=== PATIENT | female | born 1995 | race Caucasian/White ===

== ENCOUNTER 2017-12-11 10:24 | Emergency (ER) | payer MEDICAID ==
[2017-12-11 10:48] VITALS: BP 132/88
[2017-12-11] MEDS ORDERED: HYDROcod/ACETAM 5/325 MG TABLET PO STA (12:17)
--- NOTE | 2017-12-11 12:20 | ED Physician Documentation ---
History of Present Illness - Stated complaint Stated Complaint: EAR PX - Chief complaint Chief Complaint: Heent - History obtained from History obtained from: Patient - History of Present Illness Timing: How many days ago (several) Pain level max: 9 Pain level now: 8 - Additonal information Additional information: Patient is a 22-year-old female who presents to the emergency department with bilateral ear pain for the past several days. Subjective fevers at home. No vomiting. No coughing. No rhinorrhea or congestion. States increasing pain. Has noted white drainage from the ears. No relief with Motrin and Tylenol. Worse with palpation. Nothing makes it better Review of Systems Constitutional: reports: Fever, Chills Respiratory: denies: Cough GI: denies: Vomiting : denies: Now EGA Musculoskeletal: denies: Neck pain, Back pain Neurologic: denies: Headache PD PAST MEDICAL HISTORY - Past Medical History Past Medical History: No - Present Medications Home Medications: Ambulatory Orders Medication Instructions Recorded Confirmed Hydrocodone/Acetaminophen 1 - 2 each PO Q6H PRN #10 tablet 12/11/17 [Hydrocodon-Acetaminophen 5-325] Ibuprofen [Motrin] 800 mg PO Q8H PRN #30 tablet 12/11/17 Neomycin/Polymyx/Hc Otic Drops 4 drops EACHEAR TID 10 Days #1 12/11/17 [Cortisporin Ear Susp] bottle - Allergies Allergies/Adverse Reactions: Allergies Allergy/AdvReac Type Severity Reaction Status Date / Time No Known Drug Allergies Allergy Verified 12/11/17 10:47 - Social History Does the pt smoke?: No Smoking Status: Never smoker PD ED PE NORMAL - Vitals Vital signs reviewed: Yes - General General: Alert and oriented X 3, No acute distress, Well developed/nourished - HEENT HEENT: PERRL, Moist mucous membranes, Pharynx benign, Other (Bilateral ear canals are swollen with white discharge. Unable to visualize tympanic membranes bilaterally. Normal pinna.) - Neck Neck: Supple, no meningeal sign, No adenopathy - Cardiac Cardiac: RRR - Respiratory Respiratory: No respiratory distress, Clear bilaterally - Derm Derm: Warm and dry, No rash - Neuro Neuro: Alert and oriented X 3 - Psych Psych: Normal mood, Normal affect Results - Vitals Vitals: Vital Signs - 24 hr 12/11/17 10:45 Temperature 36.6 C Heart Rate 87 Respiratory 16 Rate Blood Pressure 132/88 H O2 Saturation 98 Oxygen O2 Source Room air PD MEDICAL DECISION MAKING - ED course Complexity details: considered differential, d/w patient ED course: Patient is a 22-year-old female with bilateral otitis externa. Nonnecrotizing. Will place on otic eardrops and pain medication for home. We will have her follow-up with her PCP for further care. Patient counseled regarding signs and symptoms for which I believe and urgent re-evaluation would be necessary. Patient with good understanding of and agreement to plan and is comfortable going home at this time This document was made in part using voice recognition software. While efforts are made to proofread this document, sound alike and grammatical errors may occur. - Sepsis Event Vital Signs: Vital Signs - 24 hr 12/11/17 10:45 Temperature 36.6 C Heart Rate 87 Respiratory 16 Rate Blood Pressure 132/88 H O2 Saturation 98 Oxygen O2 Source Room air Departure - Departure Disposition: Home, Self Care Clinical Impression: Otitis externa Qualifiers: Otitis externa type: unspecified type Chronicity: acute Laterality: bilateral Qualified Code(s): H60.503 - Unspecified acute noninfective otitis externa, bilateral Condition: Good Instructions: ED Otitis Externa Follow-Up: your,doctor in 1 week [Other] Prescriptions: Hydrocodone/Acetaminophen [Hydrocodon-Acetaminophen 5-325] 1 - 2 each PO Q6H PRN #10 tablet PRN Reason: pain Ibuprofen [Motrin] 800 mg PO Q8H PRN #30 tablet PRN Reason: PAIN &/OR FEVER Neomycin/Polymyx/Hc Otic Drops [Cortisporin Ear Susp] 4 drops EACHEAR TID 10 Days #1 bottle Comments: Take all antibiotics until gone. Return if you worsen. This should improve over the next few days. Do not drink alcohol or drive while on narcotic pain medicine. Note that many narcotic pain relievers also contain tylenol/acetaminophen. Please ensure that your total dose of acetaminophen from all sources does not exceed 3 grams (3000mg) per day. You may constipated on this medication, take a stool softener such as "Colace" twice a day while you are on it. Also recommend a [id number] laxative such as senna or MiraLAX any day that you do not have a bowel movement. If you received narcotic pain medication in the emergency department, do not drive or operate machinery for the next 24 hours. Discharge Date/Time: 12/11/17 12:26
== END 2017-12-11 12:26 | disposition home or self-care (01) ==
LOC: ED 10:24
DX: H60.503 Unspecified acute noninfective otitis externa, bilateral (principal)
CPT/HCPCS: 99283; A9270

== ENCOUNTER 2018-07-23 14:11 | Emergency (ER) | payer MEDICAID ==
--- NOTE | 2018-07-23 14:25 | ED Physician Documentation ---
History of Present Illness - Stated complaint Stated Complaint: LEG PX BOTH - Chief complaint Chief Complaint: Ext Problem - History obtained from History obtained from: Patient - Additonal information Additional information: Patient is a previously healthy 23-year-old female presenting with concerns of changes to both her legs, particular areas of swelling or bumps. Patient reports that she has had this issue for years, since her with her son.Patient reports fluctuating swelling and discomfort. Patient denies overlying skin changes such as erythema or bruising. Patient also denies any other inciting incident or trauma, particularly recently. Patient denies any strength, range of motion, sensation changes to lower extremities. Patient also denies calf pain or swelling. No other improving or worsening factors to her symptoms noted. Review of Systems Skin: denies: Rash Musculoskeletal: reports: Extremity pain PD PAST MEDICAL HISTORY - Past Medical History Past Medical History: No - Past Surgical History Past Surgical History: No - Present Medications Home Medications: Ambulatory Orders Medication Instructions Recorded Confirmed Hydrocodone/Acetaminophen 1 - 2 each PO Q6H PRN #10 tablet 12/11/17 [Hydrocodon-Acetaminophen 5-325] Ibuprofen [Motrin] 800 mg PO Q8H PRN #30 tablet 12/11/17 Neomycin/Polymyx/Hc Otic Drops 4 drops EACHEAR TID 10 Days #1 12/11/17 [Cortisporin Ear Susp] bottle - Allergies Allergies/Adverse Reactions: Allergies Allergy/AdvReac Type Severity Reaction Status Date / Time No Known Drug Allergies Allergy Verified 07/23/18 14:16 - Social History Does the pt smoke?: No Smoking Status: Never smoker PD ED PE NORMAL - General General: Alert and oriented X 3, No acute distress, Well developed/nourished - HEENT HEENT: Atraumatic, Moist mucous membranes - Cardiac Cardiac: Strong equal pulses (Cap refill brisk) - Respiratory Respiratory: No respiratory distress - Derm Derm: Normal color, Warm and dry, No rash - Extremities Extremities: No deformity, No tenderness to palpate, No edema, No calf tenderness / cord, Other (Small area of palpable superficial viens in left anterior thigh without signs of infection or other complication noted) - Neuro Neuro: Alert and oriented X 3, No motor deficit, No sensory deficit - Psych Psych: Normal mood, Normal affect Results - Vitals Vitals: Vital Signs - 24 hr 07/23/18 14:16 Temperature 36.6 C Heart Rate 83 Respiratory 16 Rate Blood Pressure 180/86 H O2 Saturation 98 Oxygen O2 Source Room air PD MEDICAL DECISION MAKING - ED course Complexity details: reviewed old records, considered differential, d/w patient, d/w family ED course: Most concerning for varicose veins or superficial thrombophlebitis. Do not find evidence of DVT, erythema nodosum, joint infection or other infection, fracture or other traumatic injury. Given duration of symptoms, feel these are likely benign and can be treated supportively. Discussed obtaining primary care and appropriate follow-up with such, as well as use of compression socks and other supportive cares. Patient voiced understanding and is comfortable discharge plan. Did offer ibuprofen/Tylenol while in ED, but patient declined. Departure - Departure Disposition: 01 Home, Self Care Clinical Impression: Thrombophlebitis Condition: Good Instructions: Stockings Compression, ED Phlebitis Superficial Follow-Up: your,doctor [Other] - Within 3 Days Comments: Recommend use of compression stockings, as well as ice application and elevation of legs when possible. May also try ibuprofen/Tylenol as needed. Please follow-up with primary care physician next 2-3 days and return to ED sooner if expands worsening symptoms or other concerns.
[2018-07-23 14:26] VITALS: BP 180/86
== END 2018-07-23 14:35 | disposition home or self-care (01) ==
LOC: ED 14:11
DX: I80.02 Phlebitis and thrombophlebitis of superficial vessels of left lower extremity (principal)
CPT/HCPCS: 99282